=== PATIENT | female | born 1970 | race Caucasian/White ===

== ENCOUNTER → 2023-09-24 09:04 | Outpatient (CLI) | payer SELFPAY ==
--- NOTE | ~2023-09-24 | CT_ITS ---
EXAMINATION: CT soft tissue neck w con DATE: 09/24/2023 09:39 INDICATION: Localized enlarged lymph nodes. Right neck mass. TECHNIQUE: Computed tomography (CT) of the neck was performed with 75 mL Omnipaque-350 intravenous co ntrast. Automated exposure control and iterative reconstruction technique were employed. The dose-mahsa gth product was 407.83 mGy-cm. COMPARISON: None FINDINGS: There is a 3.2 x 2.9 cm mass in right parotid gland. There are enlarged right parotid and r ight high and mid internal jugular chain lymph nodes. For example, a right high internal jugular carlos n node measures 15 x 18 mm. The paranasal sinuses are clear. The mastoid air cells are normal. There is mild cervical spondylosis. IMPRESSION: 1. Right parotid mass. The differential diagnosis includes primary malignancy, benign mixed tumor, an d Warthin tumor. Consider ultrasound-guided fine-needle aspiration. 2. Right-sided cervical lymphadenopathy suspicious for metastatic disease. Ultrasound-guided core nee dle biopsy is recommended. Reviewed, dictated and finalized at location A. MARKETING EXECUTIVE IMPRESSION: 1. Right parotid mass. The differential diagnosis includes primary malignancy, benign mixed tumor, and Warthin tumor. Consider ultrasound-guided fine-needle a spiration. 2. Right-sided cervical lymphadenopathy suspicious for metastatic disease. Ultr asound-guided core needle biopsy is recommended.
[2023-09-24 09:29] LABS: Estimated Glomerular Filt Rate > 60
== END ==
PROVIDERS: PCP Physician Assistant; Visit Provider Physician Assistant
DX: R59.0 Localized enlarged lymph nodes (principal); K11.8 Other diseases of salivary glands
CPT/HCPCS: 70491; Q9967

== ENCOUNTER 2023-11-06 12:22 | Outpatient (CLI) | payer OTHER, SELFPAY ==
--- NOTE | ~2023-11-06 | US_ITS ---
EXAMINATION: US biopsy lymph node DATE: 11/06/2023 15:47 INDICATION: Enlarged right jugular chain lymph nodes TECHNIQUE: The procedure including the risks and benefits was discussed with the patient. Risks discu ssed included bleeding and infection. The patient understood the risks and agreed to proceed. The sk in overlying the right neck was prepped and draped in usual sterile fashion. Anesthetic was administ ered with 1% lidocaine subcutaneously. An 18 gauge core biopsy needle was advanced under continuous ultrasound observation to the lesion of interest. 9 core biopsy specimens were obtained, 6 placed in RPMI media and 3 in formalin. The needle was removed and the entry site was cleaned and dressed. P ost procedure ultrasound demonstrated no hemorrhage. FINDINGS: Ultrasound images demonstrate a few enlarged right jugular chain lymph nodes. Subsequent im ages demonstrate the biopsy needle advanced into the largest 1.9 x 1.3 cm lymph node. IMPRESSION: 1. Successful Ultrasound-guided biopsy of the largest of a few enlarged right jugular chain lymph nod es. Reviewed, dictated and finalized at location A. RIFUGAL EXTRACTOR OPERATOR IMPRESSION: 1. Successful Ultrasound-guided biopsy of the largest of a few enlarged right j ugular chain lymph nodes.
--- NOTE | ~2023-11-06 | US_ITS ---
EXAMINATION: US FNA w image guidance DATE: 11/06/2023 15:48 INDICATION: Right parotid mass TECHNIQUE: A time-out was performed to verify the patient's name, date of , and procedure to be performed . The procedure and its benefits and risks were discussed with the patient. Risks specifically discus sed included bleeding and infection. The patient understood the risks and agreed to proceed. The hear t size of the face and neck overlying the parotid gland was prepped and draped in the usual sterile m melissa. 3 mL 1% lidocaine was used for local anesthesia. 6 passes were made with a 25G needle into t he lesion. Appropriate needle location was documented with continuous sonographic guidance. A steri le bandage was applied. There were no immediate complications. FINDINGS: Grayscale ultrasound images demonstrate biopsy needles advanced into the very hypoechoic region of th e previous noted mass in the deep right parotid gland. Some of the decreased echogenicity likely resu lts from shadowing from parotid gland with relatively poor delineation of the margins of the mass. Th e needle tip was difficult to observe within the mass however there was a clear distinction in the re sistance to advancement of the needle which increased significantly when transitioning from the parot id to the mass. IMPRESSION: 1. Successful ultrasound-guided fine needle aspiration of a mass in the deep right parotid which is better visualized on the prior CT at which time it measured approximately 2.9 x 3.2 cm. Reviewed, dictated and finalized at location A. ICAL CARE MANAGER IMPRESSION: 1. Successful ultrasound-guided fine needle aspiration of a mass in the deep r ight parotid which is better visualized on the prior CT at which time it measur ed approximately 2.9 x 3.2 cm.
== END 2023-11-06 12:23 | disposition home or self-care (01) ==
PROVIDERS: PCP Physician Assistant; Visit Provider Physician Assistant
DX: C96.9 Malignant neoplasm of lymphoid, hematopoietic and related tissue, unspecified (principal); C07 Malignant neoplasm of parotid gland
CPT/HCPCS: 10005; 38505; 76942; 88108; 88184; 88305; 88342